=== PATIENT | female | born 1990 | race Caucasian/White ===

== ENCOUNTER 2022-06-22 19:01 | Emergency (ER) | payer MEDICAID ==
[~2022-06-22] VITALS: Ht 157.5 cm; Wt 66.0 kg
[2022-06-22 20:55] LABS: CLARITY URINE CLOUDY (CLEAR); COLOR URINE DARK YELLOW (YELLOW); KETONES URINE TRACE (NEGATIVE); LEUKOCYTE ESTERASE URINE 2+ (NEGATIVE); NITRITE URINE NEGATIVE (NEGATIVE); OCCULT BLOOD URINE NEGATIVE (NEGATIVE); PROTEIN URINE NEGATIVE (NEGATIVE); SPECIFIC GRAVITY URINE 1.019 (1.005-1.030)
[2022-06-22] MEDS ORDERED: CEPH500C2 MT ×2 (23:48)
[2022-06-23] MEDS ORDERED: AZITHROMYCIN 500 MG TABLET PO ONE
[2022-06-23] MEDS ORDERED: CEFTRIAXONE SODIUM 500 MG/VIAL IM ONE
[2022-06-23 00:36] VITALS: BP 153/99
[2022-06-23] MEDS ORDERED: CEPH500C2 PO (10:06)
== END 2022-06-23 00:38 | disposition home or self-care (01) ==
LOC: ER 19:01
DX: N39.0 Urinary tract infection, site not specified (principal); Z20.2 Contact with and (suspected) exposure to infections with a predominantly sexual mode of transmission
CPT/HCPCS: 81003; 81025; 96372; 99283; J0696